=== PATIENT | female | born 1965 ===

== ENCOUNTER 2020-03-09 11:00 | Inpatient (IN) | payer OTHER ==
[~2020-03-09] VITALS: Ht 170.2 cm; Wt 97.5 kg
[2020-03-18] MEDS ORDERED: NORFLEX100MG PO (11:41)
[2020-03-18] MEDS ORDERED: CIPRO500 MG PO (11:41)
[2020-03-18] MEDS ORDERED: ULTRACET PO (11:41)
[2020-03-18] MEDS ORDERED: NAPROXEN SODIU220 M2 PO (11:41)
== END 2020-03-18 12:04 | disposition home or self-care (01) | DRG 748 ==
LOC: ADM 11:00 → EDSTATUS 11:00 → OB/GYN 03-16 07:00 → O/R 03-16 09:41 → OB/GYN 03-16 11:00
PROVIDERS: Urology; ADMIT Obstetrics & Gynecology; ATTEND Obstetrics & Gynecology
PROC: 0JQC0ZZ Repair Pelvic Region Subcutaneous Tissue and Fascia, Open Approach (ICD-10-PCS; principal; 2020-03-16 07:00)
PROC: 0TVD7ZZ Restriction of Urethra, Via Natural or Artificial Opening (ICD-10-PCS; 2020-03-16 07:00)
DX: N81.11 Cystocele, midline (principal); N39.3 Stress incontinence (female) (male)